=== PATIENT | male | born 1980 | race Caucasian/White ===

== ENCOUNTER 2017-05-30 13:29 | Emergency (ER) | payer OTHER ==
[2017-05-30 13:38] VITALS: BP 122/69; PULSE 70; RESP 18; TEMP 98
[2017-05-30] MEDS ORDERED: Oxycodone/Acetaminophen 5/325 mg Tab PO STA (14:48)
[2017-05-30] MEDS ORDERED: Oxycodone/Acetaminophen 5/325 mg Tab ONE (14:55)
--- NOTE | 2017-05-30 15:16 | C.PDOC ---
History Of Present Illness 37 y/o male presents to ED with complaints of left 2nd, 3rd, and 4th finger pain. Pt states he accidentally smashed his hand in a car door. Denies weakness , numbness or any other complaint or injury. Time Seen by Provider: 05/30/17 13:39 Chief Complaint (Nursing): Upper Extremity Problem/Injury History Per: Patient History/Exam Limitations: no limitations Onset/Duration Of Symptoms: Hrs Current Symptoms Are (Timing): Still Present Quality: "Pain" Severity: Moderate Recent travel outside of the [place]: No Past Medical History Reviewed: Historical Data, Nursing Documentation, Vital Signs Vital Signs: Last Vital Signs Temp 98 F 05/30/17 13:34 Pulse 70 05/30/17 13:34 Resp 18 05/30/17 15:24 BP 122/69 05/30/17 13:34 Pulse Ox 99 05/30/17 15:27 Family History: States: Unknown Family Hx - Social History Hx Alcohol Use: No Hx Substance Use: No - Immunization History Hx Tetanus Toxoid Vaccination: No Hx Influenza Vaccination: No Hx Pneumococcal Vaccination: No Review Of Systems Musculoskeletal: Positive for: Other (left 2nd, 3rd and 4th finger pain) Neurological: Negative for: Weakness, Numbness Physical Exam - Physical Exam Appears: Non-toxic, No Acute Distress Skin: Warm, Dry Head: Atraumatic, Normacephalic Extremity: Normal ROM, Capillary Refill (<2 seconds), No Deformity, Swelling ( swelling to left 2nd, 3rd and 4th fingers with mild ecchymosis; patchy subungal hemorrage on all fingers <25% of nail) Pulses: Left Radial: Normal Neurological/Psych: Oriented x3, Normal Speech, Normal Motor, Normal Sensation ED Course And Treatment O2 Sat by Pulse Oximetry: 99 (room air) Pulse Ox Interpretation: Normal - Other Rad XR hand X-Ray: Viewed By Me, Read By Radiologist Interpretation: Accession No. : [id number]. Patient Name / ID : ZAFAR RIOS / [id number]. Exam Date : 05/30/2017 13:50:19 ( Approved ). Study Comment : Sex / Age : M / 37Y. Creator : Angel Romero MD. Dictator : Angel Romero MD. Local Coordinator : Vascular Manager : Angel Romero MD. Approver2 : Report Date : 05/30/2017 15:32:39. My Comment : . PROCEDURE: Left Hand Radiographs. HISTORY: injury. COMPARISON: None. FINDINGS: BONES: No evidence of acute displaced fracture nor dislocation. The osseous structures intact. No cortical destructive changes. There appears to be a small benign-appearing cyst head 3rd metacarpal. . JOINTS: . Joint spaces preserved. No significant osteoarthritis. SOFT TISSUES: Soft tissues grossly unremarkable. No evidence of subcutaneous air or radiopaque foreign body. OTHER FINDINGS: None. IMPRESSION: No evidence of acute displaced fracture nor dislocation. If symptoms persist or occult fracture suspected clinically recommend repeat radiographs in 5-10 days as most fractures should become radiographically evident in this timeframe. Progress Note: Splint applied for support by CP, checked by me. Discharged home with instruction to follow up with PMD in 2-3 days or return to ED if worsening symptoms. Disposition - Disposition Referrals: [facility] [Outside] Disposition: HOME/ ROUTINE Disposition Time: 15:11 Condition: STABLE Additional Instructions: Follow up with PMD/Clinic within 1-2 days. Return to ED if feel worse. 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 - Scribe Statement The provider has reviewed the documentation as recorded by the Lani Camp All medical record entries made by the Lani were at my direction and personally dictated by me. I have reviewed the chart and agree that the record accurately reflects my personal performance of the history, physical exam, medical decision making, and the department course for this patient. I have also personally directed, reviewed, and agree with the discharge instructions and disposition.
[2017-05-30 15:26] VITALS: O2SAT 99
--- NOTE | 2017-05-30 15:34 | RAD ---
PROCEDURE: Left Hand Radiographs. HISTORY: injury COMPARISON: None. FINDINGS: BONES: No evidence of acute displaced fracture nor dislocation. The osseous structures intact. No cortical destructive changes. There appears to be a small benign-appearing cyst head 3rd metacarpal. . JOINTS: . Joint spaces preserved. No significant osteoarthritis. SOFT TISSUES: Soft tissues grossly unremarkable. No evidence of subcutaneous air or radiopaque foreign body OTHER FINDINGS: None. IMPRESSION: No evidence of acute displaced fracture nor dislocation. If symptoms persist or occult fracture suspected clinically recommend repeat radiographs in 5-10 days as most fractures should become radiographically evident in this timeframe.
== END 2017-05-30 15:25 | disposition home or self-care (01) ==
LOC: C.ER 13:29
DX: S60.122A Contusion of left index finger with damage to nail, initial encounter (principal); S60.132A Contusion of left middle finger with damage to nail, initial encounter; S60.142A Contusion of left ring finger with damage to nail, initial encounter; W22.8XXA Striking against or struck by other objects, initial encounter

== ENCOUNTER 2018-10-01 13:57 | Emergency (ER) | payer SELFPAY ==
[2018-10-01 14:03] VITALS: BMI 26.8
[2018-10-01 14:05] VITALS: RESP 16; O2SAT 100
[2018-10-01 14:25] LABS: BASO % 0.2 % (0.0-2.0); EOS # 0.7 K/uL (0.0-0.7); EOS % 5.7 % (0.0-4.0); HEMOGLOBIN 14.1 g/dL (12.0-18.0); LYMPH # 5.3 K/uL (1.0-4.3); LYMPH % 46.3 % (20.0-40.0); MEAN CELL VOLUME 88.1 fL (80.0-94.0); MEAN CORPUSCULAR HEMOGLOBIN 31.2 pg (27.0-31.0); MEAN CORPUSCULAR HGB CONC 35.4 g/dL (33.0-37.0); MEAN PLATELET VOLUME 9.1 fL (7.2-11.7); MONO # 0.8 K/uL (0.0-0.8); MONO % 6.9 % (0.0-10.0); NEUT # 4.7 K/uL (1.8-7.0); NEUT % 40.9 % (50.0-75.0); RBC 4.53 Mil/uL (4.40-5.90); RED CELL DISTRIBUTION WIDTH 12.4 % (11.5-14.5); WHITE BLOOD COUNT 11.4 K/uL (4.8-10.8)
[2018-10-01 14:37] LABS: ALB/GLOB RATIO 1.6 (1.0-2.1); ALT/SGPT 63 U/L (21-72); AST/SGOT 41 U/L (17-59); BLOOD UREA NITROGEN 12 mg/dL (9-20); CALCIUM 10.5 mg/dl (8.6-10.4); GFR NON-AFRICAN AMERICAN > 60
[2018-10-01 14:53] LABS: B-TYPE NATRIURETIC PEPTIDE < 11.1 pg/mL (0-450)
[2018-10-01 15:12] VITALS: TEMP 98.3
--- NOTE | 2018-10-01 15:12 | C.PDOC ---
History Of Present Illness 38 year old male presents to the ED c/o sudden onset left sided chest discomfort that radiates down his left arm and left leg associated tachycardia. Patient states he drank 2 beers last night but he only usually drinks 1 beer a week. Patient also c/o tachycardia. Patient denies fever, chills, headache, dizziness, visual changes, SOB, weakness, numbness. Time Seen by Provider: 10/01/18 14:09 Chief Complaint (Nursing): Chest Pain History Per: Patient History/Exam Limitations: no limitations Onset/Duration Of Symptoms: Days Current Symptoms Are (Timing): Still Present Quality: "Pain" Recent travel outside of the [place]: No Additional History Per: Patient Past Medical History Reviewed: Historical Data, Nursing Documentation, Vital Signs Vital Signs: Last Vital Signs Temp Pulse 116 H 10/01/18 14:02 Resp 16 10/01/18 14:02 BP 137/83 10/01/18 14:02 Pulse Ox 100 10/01/18 14:02 - Medical History PMH: No Chronic Diseases Surgical History: No Surg Hx Family History: States: Unknown Family Hx - Social History Hx Alcohol Use: Yes Hx Substance Use: No - Immunization History Hx Tetanus Toxoid Vaccination: No Hx Influenza Vaccination: No Hx Pneumococcal Vaccination: No Review Of Systems Constitutional: Negative for: Fever, Chills Cardiovascular: Positive for: Chest Pain, Palpitations Respiratory: Negative for: Cough, Shortness of Breath Gastrointestinal: Negative for: Nausea, Vomiting, Abdominal Pain Skin: Negative for: Rash Neurological: Negative for: Weakness, Numbness, Headache, Dizziness Physical Exam - Physical Exam Appears: Non-toxic, No Acute Distress Skin: Normal Color, Warm, Dry Head: Atraumatic, Normacephalic Eye(s): bilateral: Normal Inspection, PERRL, EOMI Neck: Normal ROM, Supple Chest: Symmetrical, Tenderness (left sided digitally reproducible chest d iscomfort) Cardiovascular: Rhythm Regular Respiratory: Normal Breath Sounds, No Rales, No Rhonchi, No Wheezing Gastrointestinal/Abdominal: Soft, No Tenderness, No Guarding, No Rebound Extremity: Normal ROM, No Tenderness, No Swelling Neurological/Psych: Oriented x3, Normal Speech, Normal Cognition, Normal Motor, Normal Sensation, Other (mild tremors) Gait: Steady ED Course And Treatment - Laboratory Results Result Diagrams: 10/01/18 14:22 10/01/18 14:22 ECG: Interpreted By Me, Viewed By Me ECG Rhythm: Sinus Tachycardia Rate From EC (BPM) O2 Sat by Pulse Oximetry: 100 (ON RA) Pulse Ox Interpretation: Normal Medical Decision Making Medical Decision Making: Plan: * EKG * Labs * CXR * Xanax 0.25 mg PO * UA prob anxiety attack vs etoh w/d resolved w Xanax EKG initially w inverted lateral T^'s, now resolved neg D Dimer neg trop Disposition Doctor Will See Patient In The: Office Counseled Patient/Family Regarding: Studies Performed, Diagnosis - Disposition Disposition: HOME/ ROUTINE Disposition Time: 15:48 Condition: GOOD Forms: [email or web address] (Khmer) - Clinical Impression Clinical Impression: Palpitations, Anxiety attack - Scribe Statement The provider has reviewed the documentation as recorded by the Scribe Ghassan García All medical record entries made by the Scribe were at my direction and personally dictated by me. I have reviewed the chart and agree that the record accurately reflects my personal performance of the history, physical exam, medical decision making, and the department course for this patient. I have also personally directed, reviewed, and agree with the discharge instructions and disposition.
[2018-10-01 15:16] LABS: D DIMER < 200 ng/mlDDU (0-243); INR 1.1; PARTIAL THROMBOPLASTIN TIME 33 SECONDS (21-34); PROTHROMBIN TIME 12.2 SECONDS (9.7-12.2)
--- NOTE | 2018-10-01 15:16 | RAD ---
Date of service: 10/01/2018 HISTORY: SOB COMPARISON: None available. FINDINGS: LUNGS: No active pulmonary disease. PLEURA: No significant pleural effusion identified, no pneumothorax apparent. CARDIOVASCULAR: No aortic atherosclerotic calcification present. Normal cardiac size. No pulmonary vascular congestion. OSSEOUS STRUCTURES: No significant abnormalities. VISUALIZED UPPER ABDOMEN: Normal. OTHER FINDINGS: None. IMPRESSION: No active disease.
[2018-10-01 16:00] VITALS: BP 129/84; PULSE 70
--- NOTE | 2018-10-04 19:42 | CARD ---
APPROVED REPORT Date of service: 10/01/2018 EKG Measurement Heart [id number] <Conclusion> Normal sinus rhythm Moderate voltage criteria for LVH, may be normal variant Borderline ECG
--- NOTE | 2018-10-04 19:44 | CARD ---
APPROVED REPORT Date of service: 10/01/2018 EKG Measurement Heart [id number] <Conclusion> Sinus tachycardia Possible Left atrial enlargement Left ventricular hypertrophy Inferolateral ST abnormality, consider ischemia Abnormal ECG
== END 2018-10-01 16:01 | disposition home or self-care (01) ==
LOC: C.ER 13:57
DX: R00.2 Palpitations (principal); F41.9 Anxiety disorder, unspecified
CPT/HCPCS: 71045; 80053; 83880; 84484; 85025; 85378; 85610; 85730; 93005; 99284; G0480